=== PATIENT | female | born 1995 | race Two or more races ===

== ENCOUNTER 2016-05-14 01:08 | Emergency (ER) | payer OTHER ==
[2016-05-14] MEDS ORDERED: IBUPROFEN 600 MG TAB PO ONE ×2 (01:33→01:34)
[2016-05-14] MEDS ORDERED: NS 1,000 ML IV ONE ×2 (01:38)
[2016-05-14] MEDS ORDERED: ACETAMINOPHEN 500 MG TAB PO ONE (01:39)
[2016-05-14] MEDS ORDERED: ONDANSETRON 4 MG/2 ML VIAL IVP ONE (01:47)
--- NOTE | 2016-05-14 01:50 | EDPHY ---
H & P Time Seen by Provider: 05/14/16 01:18 HPI/ROS: HPI Flu symptoms. 20-year-old female by private vehicle. She reports feeling achy, fatigue, dry cough, nausea,, sore throat, fever, nasal congestion x2 days. ROS: Constitutional: As above. Eyes: No discharge. No changes in vision. ENT: As above. Respiratory: As above. No shortness of breath. Cardiac: No chest pain, no palpitations. Gastrointestinal: No abdominal pain, no vomiting, no diarrhea. Genitourinary: No hematuria. No dysuria or increased frequency with urination. Musculoskeletal: As above. Skin: No rashes. Neurological: No headache. No focal weakness or altered sensation. Past medical history: She did not get a flu vaccine this year, history of ulcerative colitis, anemia, history of blood transfusions, eczema. Social history: Student [employer]. Here by herself. Physical Exam: General Appearance: Alert, no distress. This patient is responding to questions appropriately and in full sentences. This patient appears well- hydrated and well-nourished. Eyes: Pupils equal and round no pallor or injection. No lid edema, erythema or injection. ENT, Mouth: Mucous membranes are moist. The pharyngeal tissues are unremarkable. No edema or swelling. No asymmetry suggestive of abscess. No erythema or exudates. Respiratory: There are no retractions, lungs are clear to auscultation with good air movement bilaterally. Cardiovascular: Regular rate and rhythm. Mild tachycardia. No murmur. Gastrointestinal: Abdomen is soft and nontender, no masses, bowel sounds normal. No focal tenderness at McBurney's point. No Willingham sign. Neurological: Motor sensory function is grossly intact. Cranial nerves are normal. Gait is normal. Skin: Warm and dry, no rashes. Musculoskeletal: Neck is supple and nontender. No cervical, submental, submandibular lymphadenopathy. Extremities are symmetrical. All joints range without pain or impingement. Psychiatric: No agitation. No depression. Database: Influenza-negative. Rapid strep-negative. EKG: Imaging: Chest x-ray PA and lateral; the cardiac mediastinal silhouette is unremarkable. No evidence of infiltrate or pneumothorax. No acute cardiopulmonary disease process noted. Interpreted by me. Procedures: Emergency department course: IV placed. She was placed on a monitor. She was started on IV normal saline with 1-2 L to be given over the next hour. She was given 4 mg of IV Zofran for nausea. She will be given 600 mg of ibuprofen and 1 g of Tylenol. 2:45 a.m., patient re-evaluated. Vital signs reviewed. Tachycardia resolved. Heart rate now in the 90s. Results of chest x-ray, influenza, rapid strep and CBC discussed. Her hematocrit is at baseline. Influenza is negative. She likely has a viral syndrome. I feel she is safe for discharge. Tylenol and ibuprofen dosing discussed. Supportive care discussed. Follow-up and return to emergency department precautions reviewed. All of her questions were answered. She was discharged in good condition. Differential Diagnosis: The differential diagnosis on this patient includes but is not limited to influenza, viral upper respiratory infection, other viral syndrome, fever, dehydration. Serious bacterial infection unlikely. This represents a partial list of diagnoses considered. These considerations are based on history, physical exam, past history, reassessment and diagnostic testing. Smoking Status: Never smoked Constitutional: Initial Vital Signs Temperature (C) 38.2 C 05/14/16 01:10 Heart Rate 125 H 05/14/16 01:10 Respiratory Rate 18 05/14/16 01:10 Blood Pressure 108/70 05/14/16 01:10 O2 Sat (%) 94 05/14/16 01:10 O2 Delivery Mode Room Air Allergies/Adverse Reactions: egg [eggs] Allergy (Verified 05/14/16 01:17) Milk Containing Products Allergy (Verified 05/14/16 01:17) Home Medications: Medication Instructions Recorded Mercaptopurine [Purinethol 50 mg 100 mg PO DAILY 06/13/14 (*)] Herbals/Supplements -Info Only 1 ea PO DAILY 08/17/15 Mesalamine [Pentasa 500 mg] 1,000 mg PO QID 08/17/15 Multivitamins [Multivitamin (*)] 1 each PO DAILY 08/17/15 Uceris 12/24/15 Medical Decision Making - Data Points Laboratory Results: Laboratory Results 05/14/16 01:50 05/14/16 05/14/16 05/14/16 Unknown 01:50 01:45 WBC 4.20 10^3/uL (3.80-9.50) RBC 4.29 10^6/uL (4.18-5.33) Hgb 10.7 L g/dL (12.6-16.3) Hct 34.7 L % (38.0-47.0) MCV 80.9 L fL (81.5-99.8) MCH 24.9 L pg (27.9-34.1) MCHC 30.8 L g/dL (32.4-36.7) RDW 17.4 H % (11.5-15.2) Plt Count 356 10^3/uL (150-400) MPV 10.6 fL (8.7-11.7) Neut % (Auto) 65.9 % (39.3-74.2) Lymph % (Auto) 12.4 L % (15.0-45.0) [place] % (Auto) 10.7 % (4.5-13.0) Eos % (Auto) 9.0 H % (0.6-7.6) Baso % (Auto) 1.0 % (0.3-1.7) Nucleat RBC Rel Count 0.0 % (0.0-0.2) Absolute Neuts (auto) 2.77 10^3/uL (1.70-6.50) Absolute Lymphs (auto) 0.52 L 10^3/uL (1.00-3.00) Absolute Monos (auto) 0.45 10^3/uL (0.30-0.80) Absolute Eos (auto) 0.38 10^3/uL (0.03-0.40) Absolute Basos (auto) 0.04 10^3/uL (0.02-0.10) Absolute Nucleated RBC 0.00 10^3/uL (0-0.01) Immature Gran % 1.0 % (0.0-1.1) Immature Gran # 0.04 10^3/uL (0.00-0.10) Sodium Pending Potassium Pending Chloride Pending Carbon Dioxide Pending Anion Gap Pending BUN Pending Creatinine Pending Estimated GFR Pending Glucose Pending Calcium Pending Influenza Typ A,B (DFA) Group A Strep Screen NEGATIVE (NEGATIVE) Group A Strep DNA Pending 05/14/16 01:30 WBC RBC Hgb Hct MCV MCH MCHC RDW Plt Count MPV Neut % (Auto) Lymph % (Auto) [place] % (Auto) Eos % (Auto) Baso % (Auto) Nucleat RBC Rel Count Absolute Neuts (auto) Absolute Lymphs (auto) Absolute Monos (auto) Absolute Eos (auto) Absolute Basos (auto) Absolute Nucleated RBC Immature Gran % Immature Gran # Sodium Potassium Chloride Carbon Dioxide Anion Gap BUN Creatinine Estimated GFR Glucose Calcium Influenza Typ A,B (DFA) NEGATIVE FOR FLU (NEGATIVE) Group A Strep Screen Group A Strep DNA Medications Given: Discontinued Medications Acetaminophen (Tylenol) 1,000 mg PO EDNOW ONE Stop: 05/14/16 01:40 Last Admin: 05/14/16 01:50 Dose: 1,000 mg Sodium Chloride (Ns) 1,000 mls @ 0 mls/hr IV ONCE ONE PRN Reason: Wide Open Stop: 05/14/16 01:39 Last Admin: 05/14/16 01:50 Dose: 1,000 mls Sodium Chloride (Ns) 1,000 mls @ 0 mls/hr IV ONCE ONE PRN Reason: Wide Open Stop: 05/14/16 01:39 Last Admin: 05/14/16 02:05 Dose: 1,000 mls Ibuprofen (Motrin) 600 mg PO EDNOW ONE Stop: 05/14/16 01:35 Last Admin: 05/14/16 01:38 Dose: 600 mg Ondansetron HCl (Zofran) 4 mg IVP EDNOW ONE Stop: 05/14/16 01:48 Last Admin: 05/14/16 02:05 Dose: 4 mg Departure - Departure Disposition: Home, Routine, Self-Care Clinical Impression: Viral syndrome, Fever, Dehydration Condition: Good Instructions: Viral Syndrome (ED) Additional Instructions: Read and follow provided instructions. Follow-up with your primary care physician in 1-2 days for re-evaluation. Ibuprofen dosin mg every 6 hours with meals for the next 3 days only, as needed for fever and body aches. Tylenol dosin mg every 4-6 hours as needed for fever. Return to the emergency department for worsening symptoms or other serious concerns. Referrals: Chiqui Fiore MD [Primary Care Provider] - As per Instructions
[2016-05-14 02:40] LABS: ABSOLUTE IMMATURE GRANULOCYTES 0.04 10^3/uL (0.00-0.10); ADD DIFF? NO; ADD MORPH? NO; ADD SCAN? NO; ATYPICAL LYMPHOCYTE FLAG 30 (0-99); FRAGMENT RBC FLAG 20 (0-99); HEMATOCRIT 34.7 % (38.0-47.0); HEMOGLOBIN 10.7 g/dL (12.6-16.3); LEFT SHIFT FLG 20 (0-99); LIPEMIA HEMOLYSIS FLAG 80 (0-99); MEAN CELL HEMOGLOBIN 24.9 pg (27.9-34.1); MEAN CELL HEMOGLOBIN CONCENTR. 30.8 g/dL (32.4-36.7); MEAN CELL VOLUME 80.9 fL (81.5-99.8); MEAN PLATELET VOLUME 10.6 fL (8.7-11.7); PLATELET CLUMPS FLAG 0 (0-99); PLATELET COUNT 356 10^3/uL (150-400); RED BLOOD CELL COUNT 4.29 10^6/uL (4.18-5.33); RED CELL DISTRIBUTION WIDTH 17.4 % (11.5-15.2)
[2016-05-14 02:46] LABS: ANION GAP 4 mEq/L (8-16); CALCIUM 8.7 mg/dL (8.5-10.4); CARBON DIOXIDE 25 mEq/l (22-31); CHLORIDE 113 mEq/L (97-110); CREATININE 0.7 mg/dL (0.6-1.0); GLOMERULAR FILTRATION RATE > 60; GLUCOSE 98 mg/dL (70-100); POTASSIUM 3.8 mEq/L (3.5-5.2); SODIUM 142 mEq/L (134-144)
[2016-05-14 02:51] VITALS: BP 111/61; PULSE 97; RESP 14; TEMP 99.1; O2SAT 97
--- NOTE | 2016-05-14 08:53 | DX ---
Chest, PA and Lateral Views, at 1:28 AM Clinical History: 20-year-old female with a cough. Comparison Study: None. Findings: The cardiac and mediastinal silhouette is normal in size. There is no focal infiltrate, ate lectasis, pleural effusion, peripheral interstitial edema, or pneumothorax. The osseous structures ar e notable for trace curvature of the thoracic spine. A lead shield was applied to the abdomen. Impression: No acute abnormality.
== END 2016-05-14 03:01 | disposition home or self-care (01) ==
DX: B34.9 Viral infection, unspecified (principal); E86.0 Dehydration
CPT/HCPCS: 96374; J2405

== ENCOUNTER 2016-10-16 20:08 | Emergency (ER) | payer OTHER ==
[2016-10-16 20:15] VITALS: BP 122/82; PULSE 101; RESP 16; TEMP 98.6; O2SAT 96
[2016-10-16] MEDS ORDERED: FLUORESCEIN SODIUM 1 MG STRIP OP ONE (20:23)
[2016-10-16] MEDS ORDERED: PROPARACAINE 0.5% 15 ML OPHT DROP ONE (20:23)
[2016-10-16] MEDS ORDERED: predniSONE 20 MG TAB PO ONE (20:25)
[2016-10-16] MEDS ORDERED: diphenhydrAMINE 25 MG CAP PO ONE (20:25)
--- NOTE | 2016-10-16 20:29 | EDPHY ---
H & P Stated Complaint: R eye swelling HPI/ROS: HPI CHIEF COMPLAINT: Right eye swelling, allergic reaction HISTORY OF PRESENT ILLNESS: This patient is a 21-year-old female otherwise healthy, does have significant past medical history for ulcerative colitis, she presents to the emergency room id she states she was playing with the dog had touched her right eye. Her right eyelids began to swell and was itching. Denies any pain. Denies scratching her eye. Denies trauma. States she started sneezing. No trouble with her vision. This happened approximately an hour ago. Denies drainage except clear tears. Past Medical History: Ulcerative colitis Past Surgical History: No recent surgery Social History: Denies daily use of drugs alcohol tobacco products. Family History: Noncontributory ROS REVIEW OF SYSTEMS: A comprehensive 10 point review of systems is otherwise negative aside from elements mentioned in the history of present illness. Exam Constitutional triage nursing summary reviewed, vital signs reviewed, awake/ alert. Eyes left eye normal. Right eye both lids are edematous, no erythema, clear tears from the eye, the conjunctival is chemotic edematous, the pupils equal round react to light, posterior eye exam without dilatation is normal, extra movements hack. No proptosis. No signs of infection no signs of periorbital cellulitis redness or warmth. HENT normal inspection, atraumatic, moist mucus membranes, no epistaxis, neck supple/ no meningismus, no raccoon eyes. Respiratory clear to auscultation bilaterally, normal breath sounds, no respiratory distress, no wheezing. Cardiovascular rate normal, regular rhythm, no murmur, no edema, distal pulses normal. Gastrointestinal soft, non-tender, no rebound, no guarding, normal bowel sounds, no distension, no pulsatile mass. Genitourinary no CVA tenderness. Musculoskeletal no midline vertebral tenderness, full range of motion, no calf swelling, no tenderness of extremities, no meningismus, good pulses, neurovascularly intact. Skin pink, warm, & dry, no rash, skin atraumatic. Neurologic awake, alert and oriented x 3, AAOx3, moves all 4 extremities equally, motor intact, sensory intact, CN II-XII intact, normal cerebellar, normal vision, normal speech. Psychiatric normal mood/affect. Heme/Lymph/Immune no lymphadenopathy. Differential Diagnosis: Includes but is not limited to in a particular order allergic conjunctivitis, allergic reaction, doubt glaucoma. Medical Decision Making: Plan for this patient cool compresses, prednisone orally, Benadryl orally. Will continue this for 3 days. Ophthalmology follow- up if needed. She has no eye pain. No visual disturbance. Her visual acuity is been reviewed. Here in the emergency room prednisone orally has been given, as well as cool compresses as well as Benadryl. She understands return emergency room if she has worsening symptoms also follow up with Ophthalmology. Source: Patient - Personal History LMP (Females 10-55): 15-21 Days Ago Current Tetanus/Diphtheria Vaccine: Unsure Current Tetanus Diphtheria and Acellular Pertussis (TDAP): Unsure - Medical/Surgical History Hx Asthma: Yes Hx Chronic Respiratory Disease: No Hx Diabetes: No Hx Cardiac Disease: No Hx Renal Disease: No Hx Cirrhosis: No Hx Alcoholism: No Hx HIV/AIDS: No Hx Splenectomy or Spleen Trauma: No Other PMH: pmh- ulcerative colitis, eczema, asthma, anemia, hx of blood transfusions - Social History Smoking Status: Never smoked Constitutional: Initial Vital Signs Temperature (C) 37 C 10/16/16 20:12 Heart Rate 101 H 10/16/16 20:12 Respiratory Rate 16 10/16/16 20:12 Blood Pressure 122/82 H 10/16/16 20:12 O2 Sat (%) 96 10/16/16 20:12 O2 Delivery Mode Room Air Allergies/Adverse Reactions: egg [eggs] Allergy (Verified 05/14/16 01:17) Milk Containing Products Allergy (Verified 05/14/16 01:17) Home Medications: Medication Instructions Recorded Mercaptopurine [Purinethol 50 mg 100 mg PO DAILY 06/13/14 (*)] Mesalamine [Pentasa 500 mg] 1,000 mg PO QID 08/17/15 Multivitamins [Multivitamin (*)] 1 each PO DAILY 08/17/15 Remicade Inj 100 mg (*) 10/16/16 diphenhydrAMINE [Benadryl 25 MG 25 mg PO BID #6 tab 10/16/16 (*)] predniSONE 60 mg PO DAILY #9 tab 10/16/16 Departure - Departure Disposition: Home, Routine, Self-Care Clinical Impression: Allergic conjunctivitis Qualifiers: Laterality: right Qualified Code(s): H10.11 - Acute atopic conjunctivitis, right eye Condition: Good Instructions: Allergies (ED) Additional Instructions: 1. Cool compresses to your eye. Do not scratch or rub your eye. 2. Take prednisone for the next 3 days. Benadryl for next 3 days. 3. Follow up with Ophthalmology. Return emergency room if you have worsening symptoms. Referrals: Chiqui Fiore MD [Primary Care Provider] - As per Instructions Valentin Urena MD [Medical Doctor] - As per Instructions Prescriptions: diphenhydrAMINE [Benadryl 25 MG (*)] 25 mg PO BID #6 tab predniSONE 60 mg PO DAILY #9 tab
== END 2016-10-16 20:40 | disposition home or self-care (01) ==
DX: H10.11 Acute atopic conjunctivitis, right eye (principal); J45.909 Unspecified asthma, uncomplicated

== ENCOUNTER 2016-12-10 21:17 | Emergency (ER) | payer OTHER ==
[2016-12-10 21:43] VITALS: BP 114/80; PULSE 103; RESP 18; TEMP 98.4; O2SAT 98
--- NOTE | 2016-12-10 22:33 | EDPHY ---
H & P Stated Complaint: hx of anemia- ulcerative colitis- increased blood in stool, weakness Time Seen by Provider: 12/10/16 22:23 HPI/ROS: Chief Complaint: Weakness, fatigue HPI: 21-year-old woman with a history of ulcerative colitis presenting with increasing weakness and fatigue for the last 3 days. She says consistent with prior episodes of anemia. She says last week she had an unusual increase in the amount of blood in her stool. She normally does have blood daily. She is currently under the care of [facility] the [facility] and [facility]. She gets frequent iron infusions, last was 2 weeks ago. Her hemoglobin is normally run 9-10. She has required blood transfusions in the past, usually when her hemoglobin is 7. Denies any fevers or chills. Has had her persistent abdominal pain which is unchanged from her usual. No chest pain or shortness of breath. No syncope. No palpitations. ROS: 10 point Review of Systems is negative except as noted in the HPI. PMH: Ulcerative colitis Social History: No smoking, no alcohol, no recreational drug use Family History: non-contributory Physical Exam: Gen: Awake, Alert, No Distress HEENT: Nose: no rhinorrhea Eyes: PERRLA, EOMI, pale conjunctiva Mouth: Moist mucosa Neck: Supple, no JVD Chest: nontender, lungs clear to auscultation Heart: S1, S2 normal, no murmur Abd: Soft, mild diffuse tenderness, no guarding Back: no CVA tenderness, no midline tenderness Ext: no edema, non-tender Skin: no rash Neuro: CN II-XII intact, Sensation grossly intact, Strength 5/5 in bilateral upper and lower extremities - Personal History LMP (Females 10-55): 15-21 Days Ago Current Tetanus Diphtheria and Acellular Pertussis (TDAP): Yes - Medical/Surgical History Hx Asthma: Yes Hx Chronic Respiratory Disease: No Hx Diabetes: No Hx Cardiac Disease: No Hx Renal Disease: No Hx Cirrhosis: No Hx Alcoholism: No Hx HIV/AIDS: No Hx Splenectomy or Spleen Trauma: No Other PMH: pmh- ulcerative colitis, eczema, asthma, anemia, hx of blood transfusions - Social History Smoking Status: Never smoked Constitutional: Initial Vital Signs Temperature (C) 36.9 C 12/10/16 21:39 Heart Rate 103 H 09/11/17 21:39 Respiratory Rate 18 12/10/16 21:39 Blood Pressure 114/80 12/10/16 21:39 O2 Sat (%) 98 12/10/16 21:39 O2 Delivery Mode Room Air Allergies/Adverse Reactions: egg [eggs] Allergy (Verified 05/14/16 01:17) Milk Containing Products Allergy (Verified 05/14/16 01:17) Home Medications: Medication Instructions Recorded Mercaptopurine [Purinethol 50 mg 100 mg PO DAILY 06/13/14 (*)] Mesalamine [Pentasa 500 mg] 1,000 mg PO QID 08/17/15 Remicade Inj 100 mg (*) 10/16/16 Omeprazole 12/10/16 Medical Decision Making ED Course/Re-evaluation: 21-year-old woman with a history of ulcerative colitis and anemia presenting with lightheadedness consistent with anemia. Her H&H today are actually reasonable at 9.9 and 31.5. She is requesting an iron infusion. I stated that is likely not indicated at this time. She is insisting that talk with Hematology to arrange for iron infusion tonight. I discussed with the on-call oncologist, Dr. Pelaez. He states there is absolutely no indication for iron infusion at this time. 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 Patient is discharged with follow-up as arranged. - Data Points Laboratory Results: Laboratory Results 12/10/16 23:00 12/10/16 23:00 12/10/16 12/10/16 23:00 23:00 WBC 3.03 10^3/uL L 10^3/uL (3.80-9.50) RBC 3.76 10^6/uL L 10^6/uL (4.18-5.33) Hgb 9.9 g/dL L g/dL (12.6-16.3) Hct 32.5 % L % (38.0-47.0) MCV 86.4 fL fL (81.5-99.8) MCH 26.3 pg L pg (27.9-34.1) MCHC 30.5 g/dL L g/dL (32.4-36.7) RDW 17.9 % H % (11.5-15.2) Plt Count 385 10^3/uL 10^3/uL (150-400) MPV 10.5 fL fL (8.7-11.7) Neut % (Auto) 73.0 % % (39.3-74.2) Lymph % (Auto) 17.2 % % (15.0-45.0) [place] % (Auto) 3.6 % L % (4.5-13.0) Eos % (Auto) 4.6 % % (0.6-7.6) Baso % (Auto) 1.3 % % (0.3-1.7) Nucleat RBC Rel Count 0.0 % % (0.0-0.2) Absolute Neuts (auto) 2.21 10^3/uL 10^3/uL (1.70-6.50) Absolute Lymphs (auto) 0.52 10^3/uL L 10^3/uL (1.00-3.00) Absolute Monos (auto) 0.11 10^3/uL L 10^3/uL (0.30-0.80) Absolute Eos (auto) 0.14 10^3/uL 10^3/uL (0.03-0.40) Absolute Basos (auto) 0.04 10^3/uL 10^3/uL (0.02-0.10) Absolute Nucleated RBC 0.00 10^3/uL 10^3/uL (0-0.01) Immature Gran % 0.3 % % (0.0-1.1) Immature Gran # 0.01 10^3/uL 10^3/uL (0.00-0.10) Sodium 134 mEq/L mEq/L (134-144) Potassium 4.6 mEq/L mEq/L (3.5-5.2) Chloride 104 mEq/L mEq/L (97-110) Carbon Dioxide 23 mEq/l mEq/l (22-31) Anion Gap 7 mEq/L L mEq/L (8-16) BUN 9 mg/dL mg/dL (7-23) Creatinine 0.7 mg/dL mg/dL (0.6-1.0) Estimated GFR > 60 Glucose 85 mg/dL mg/dL (70-100) Calcium 8.9 mg/dL mg/dL (8.5-10.4) Specimen Hemolysis 131 Departure - Departure Disposition: Home, Routine, Self-Care Clinical Impression: Fatigue Condition: Good Instructions: Fatigue (ED) Additional Instructions: Follow up with your mill roll operator tomorrow as scheduled. Return to the emergency department for fainting, increasing weakness, fevers, chills, or any other concerns. Referrals: Chiqui Fiore MD [Primary Care Provider] - As per Instructions
[2016-12-10 23:15] LABS: % IMMATURE GRANULYOCYTES 0.3 % (0.0-1.1); ABSOLUTE IMMATURE GRANULOCYTES 0.01 10^3/uL (0.00-0.10); ADD DIFF? NO; ADD MORPH? NO; ADD SCAN? NO; ATYPICAL LYMPHOCYTE FLAG 0 (0-99); FRAGMENT RBC FLAG 20 (0-99); HEMATOCRIT 32.5 % (38.0-47.0); HEMOGLOBIN 9.9 g/dL (12.6-16.3); LEFT SHIFT FLG 80 (0-99); LIPEMIA HEMOLYSIS FLAG 80 (0-99); MEAN CELL HEMOGLOBIN 26.3 pg (27.9-34.1); MEAN CELL HEMOGLOBIN CONCENTR. 30.5 g/dL (32.4-36.7); MEAN CELL VOLUME 86.4 fL (81.5-99.8); MEAN PLATELET VOLUME 10.5 fL (8.7-11.7); PLATELET CLUMPS FLAG 90 (0-99); PLATELET COUNT 385 10^3/uL (150-400); RED BLOOD CELL COUNT 3.76 10^6/uL (4.18-5.33); RED CELL DISTRIBUTION WIDTH 17.9 % (11.5-15.2)
[2016-12-11 02:48] LABS: ANION GAP 7 mEq/L (8-16); CALCIUM 8.9 mg/dL (8.5-10.4); CARBON DIOXIDE 23 mEq/l (22-31); CHLORIDE 104 mEq/L (97-110); CREATININE 0.7 mg/dL (0.6-1.0); GLOMERULAR FILTRATION RATE > 60; GLUCOSE 85 mg/dL (70-100); POTASSIUM 4.6 mEq/L (3.5-5.2); SODIUM 134 mEq/L (134-144); SPECIMEN HEMOLYSIS 131
== END 2016-12-11 00:09 | disposition home or self-care (01) ==
DX: R53.83 Other fatigue (principal); J45.909 Unspecified asthma, uncomplicated

== ENCOUNTER 2017-05-18 08:19 | Emergency (ER) | payer OTHER ==
[2017-05-18 08:33] VITALS: BP 98/71; PULSE 89; RESP 16; TEMP 98.6; O2SAT 94
[2017-05-18] MEDS ORDERED: predniSONE 20 MG TAB PO ONE (09:08)
[2017-05-18] MEDS ORDERED: IPRATROPIUM/ALBUTEROL 3 ML DEYVIAL IH ONE (09:08)
--- NOTE | 2017-05-18 09:11 | EDPHY ---
H & P Time Seen by Provider: 05/18/17 08:58 HPI/ROS: CHIEF COMPLAINT: Cough and shortness of breath HISTORY OF PRESENT ILLNESS: Patient is a history of ulcerative colitis and asthma. She was on Remicade for her colitis which helped her asthma until around Michelle of last year. She has had a cough and cold symptoms for 4 days. She has feels a stuffy nose and no hemoptysis or fever or chills. No chest pain. A little bit of worsening of shortness of breath. She has had previous blood transfusions but that was on or colitis was having lots of bloody diarrhea and it is pretty stable right now without the symptoms. Symptoms mild to moderate. Not fully helped by her Ventolin inhaler. REVIEW OF SYSTEMS: Eye: no change in vision ENT: HPI no sore throat or earache Cardiac: no chest pain or syncope Pulmonary: HPI Abdomen: no vomiting, diarrhea, abdominal pain Musculoskeletal: no back pain Skin: no rash Neuro: no headache Constitutional: no fever : no urinary symptoms A comprehensive 10 point review of systems is otherwise negative aside from elements mentioned in the history of present illness. PAST MEDICAL HISTORY: Includes ulcerative colitis and asthma, anemia with blood transfusion No recent travel or immobilization, no history of DVT or PE. Social history: Nonsmoker General Appearance: Alert and conversant, cooperative. Eyes: No scleral icterus. ENT, Mouth: Normal mucous membranes. No angioedema. Respiratory: Speaks in full sentences but faint bilateral expiratory wheezing with prolonged expiratory phase. Breath sounds equal no focal lung sounds. Cardiovascular: Regular rate and rhythm. Gastrointestinal: Abdomen is soft and non tender. Neurological: Alert, face symmetric, normal motor and sensory in extremities. Skin: Warm and dry, no rashes. Musculoskeletal: No peripheral edema. No calf tenderness. Psychiatric: Not agitated. Emergency Department course/MDM: Low likelihood for pulmonary embolism. Much more likely to be worsening of asthma with URI. DuoNeb and prednisone short burst discussed and consented. Influenza testing as would treat her if she is positive because of her underlying medical conditions. Smoking Status: Never smoked Constitutional: Initial Vital Signs Temperature (C) 37 C 05/18/17 08:30 Heart Rate 89 05/18/17 08:30 Respiratory Rate 16 05/18/17 08:30 Blood Pressure 98/71 L 05/18/17 08:30 O2 Sat (%) 94 05/18/17 08:30 O2 Delivery Mode Room Air Allergies/Adverse Reactions: egg [eggs] Allergy (Verified 05/18/17 08:29) Milk Containing Products Allergy (Verified 05/18/17 08:29) Home Medications: Medication Instructions Recorded Mercaptopurine [Purinethol 50 mg 100 mg PO DAILY 06/13/14 (*)] Mesalamine [Pentasa 500 mg] 1,000 mg PO QID 08/17/15 Omeprazole 12/10/16 predniSONE [prednisone 20mg (RX)] 40 mg PO Q12 3 Days tab 05/18/17 MDM/Departure - MDM Medications Given: Discontinued Medications Albuterol/Ipratropium (Duoneb) 3 ml IH EDNOW ONE Stop: 05/18/17 09:09 Last Admin: 05/18/17 09:17 Dose: 3 ml Prednisone (Prednisone) 40 mg PO EDNOW ONE Stop: 05/18/17 09:09 Last Admin: 05/18/17 09:17 Dose: 40 mg - Depart Disposition: Home, Routine, Self-Care Clinical Impression: Exacerbation of asthma Qualifiers: Asthma severity: mild Asthma persistence: unspecified Qualified Code(s): J45.901 - Unspecified asthma with (acute) exacerbation URI (upper respiratory infection) Qualifiers: URI type: unspecified viral URI Qualified Code(s): J06.9 - Acute upper respiratory infection, unspecified Condition: Good Instructions: Asthma (ED), Upper Respiratory Infection (ED) Additional Instructions: Influenza negative Prescriptions: predniSONE [prednisone 20mg (RX)] 40 mg PO Q12 3 Days tab Referrals: Chiqui Fiore MD [Primary Care Provider] - As per Instructions
== END 2017-05-18 09:34 | disposition home or self-care (01) ==
DX: J45.901 Unspecified asthma with (acute) exacerbation (principal); J06.9 Acute upper respiratory infection, unspecified
CPT/HCPCS: J7512